=== PATIENT | female | born 1995 | race Caucasian/White ===

== ENCOUNTER 2021-11-02 05:35 | Inpatient (IN) | payer OTHER ==
[2021-11-01 13:34] LABS: Mean Corpuscular HGB CONC 33.2 g/dL (32.0-36.0); Mean Corpuscular Hemoglobin 29.7 pg (27.0-33.0); Mean Corpuscular Volume 89.5 fl (81.6-98.3); Mean Platelet Volume 10.2 fl (7.4-10.4); Platelet Count 202 10x3/uL (150-450); RBC Distribution Width 13.2 % (11.5-14.5); Red Blood Cell (RBC) Count 4.38 10x6/uL (3.90-5.03); White Blood Cell (WBC) Count 9.7 10x3/uL (3.5-10.5)
[2021-11-01 14:10] LABS: Hep B Surf Ag Non-Reactive S/CO (NonReactive)
[2021-11-01 14:11] LABS: Syphilis Antibody Nonreactive (Nonreactive); Syphilis Antibody Index 0.05 S/CO (<1.00 Non-Reactive)
[2021-11-01 14:12] LABS: HBSAg Index 0.15 S/CO (0-0.99)
[2021-11-01 20:11] LABS: SARS-CoV-2 PCR by NAA Not Detected (NotDetected)
[2021-11-02] MEDS ORDERED: Promethazine HCl 25 MG/ML VIAL IM PRN ×3 (06:33→11:17)
[2021-11-02] MEDS ORDERED: Bicitra 30 ML UDCUP PO PRN (06:33)
[2021-11-02] MEDS ORDERED: Ondansetron PF 4 MG/2 ML Vial IVP PRN ×3 (06:33→11:17)
[2021-11-02] MEDS ORDERED: hydrALAZINE 20 MG/ML VIAL SLOW IVP PRN ×2 (06:33→11:17)
[2021-11-02] MEDS ORDERED: Lactated Ringer's 1,000 ML IV SCH (06:33)
[2021-11-02] MEDS ORDERED: ceFAZolin 2 GM/Dextrose 50 ML 2 GM in Premix Bag 1 BAG IVPB SCH (06:33)
[2021-11-02] MEDS ORDERED: Famotidine/PF 20 mg/2ml Vial SLOW IVP PRN (06:33)
[2021-11-02 06:35] VITALS: BMI 25.4
[2021-11-02] MEDS ORDERED: ePHEDrine Sulfate 50 MG/10 ML VIAL ONE (07:09)
[2021-11-02] MEDS ORDERED: Morphine PF 10 MG/10 ML VIAL ONE (07:09)
[2021-11-02] MEDS ORDERED: Glycopyrrolate 0.2 MG/ML 5 ML SYRINGE ONE (07:11)
[2021-11-02] MEDS ORDERED: Ketorolac Tromethamine 30 MG/ML VIAL ONE (07:11)
[2021-11-02] MEDS ORDERED: Dexamethasone 4 mg/ml Vial ONE (07:11)
[2021-11-02] MEDS ORDERED: Phenylephrine 40 MG/NS 250 ML 250 ML ONE (07:11)
[2021-11-02] MEDS ORDERED: Oxytocin 10 UNITS/ML VIAL ONE (07:11)
[2021-11-02] MEDS ORDERED: PHENYLEPHRINE-NS 100 MCG/ML 10 ML SYRINGE ONE (07:11)
[2021-11-02] MEDS ORDERED: Ondansetron PF 4 MG/2 ML Vial ONE (07:11)
[2021-11-02] MEDS ORDERED: Ondansetron HCl/PF 4 MG/2 ML Vial IVP PRN (07:17)
[2021-11-02] MEDS ORDERED: Promethazine HCl 25 MG SUPP PR PRN (07:17)
[2021-11-02] MEDS ORDERED: Naloxone HCl 0.4 mg/ml Vial IVP PRN ×2 (07:17)
[2021-11-02] MEDS ORDERED: diphenhydrAMINE 50 MG/ML VIAL IVP PRN (07:17)
[2021-11-02] MEDS ORDERED: Meperidine HCl/PF 25 MG/ML VIAL SLOW IVP PRN (07:17)
[2021-11-02] MEDS ORDERED: Fentanyl 100 MCG/2 ML VIAL SLOW IVP PRN (07:17)
[2021-11-02] MEDS ORDERED: Hydrocerin (Eucerin) Cream 120 gm Jar TOP PRN (07:17)
[2021-11-02] MEDS ORDERED: Naloxone HCl 0.4 mg/ml Vial IV PRN (07:17)
[2021-11-02] MEDS ORDERED: Ketorolac Tromethamine 30 MG/ML VIAL IVP PRN (07:17)
[2021-11-02] MEDS ORDERED: Communication Order-Pharmacy FS SCH (07:30)
[2021-11-02] MEDS ORDERED: Ketorolac Tromethamine 30 MG/ML VIAL IVP SCH (07:30)
[2021-11-02] MEDS ORDERED: NS w/ Oxytocin 30 units 500 ML ONE (09:02)
[2021-11-02] MEDS ORDERED: Lanolin Ointment 7 GM TUBE TOP PRN (11:17)
[2021-11-02] MEDS ORDERED: Bisacodyl 10 MG SUPP PR PRN (11:17)
[2021-11-02] MEDS ORDERED: Boostrix 0.5 ML (Tdap) VIAL IM ONE (11:17)
[2021-11-02] MEDS ORDERED: Simethicone Chewable 80 MG TAB PO PRN (11:17)
[2021-11-02] MEDS ORDERED: diphenhydrAMINE 25 MG CAP PO PRN (11:17)
[2021-11-02] MEDS: Docusate 100 MG CAP PO SCH ×2 (13:46→22:00)
[2021-11-02] MEDS: Prenatal Vitamin 1 TAB PO SCH (13:46)
[2021-11-02] MEDS: Ferrous Sulfate 325 MG TAB PO SCH ×2 (13:46→22:00)
[2021-11-02] MEDS: Ibuprofen 800 MG TAB PO SCH ×2 (13:56→22:11)
[2021-11-02] MEDS ORDERED: HYDROcodone/Acetaminophen 5/325 mg Tablet PO PRN ×2 (20:00)
[2021-11-03 05:24] LABS: Hemoglobin 10.9 g/dL (12.0-15.5); Mean Corpuscular HGB CONC 33.7 g/dL (32.0-36.0); Mean Corpuscular Hemoglobin 29.6 pg (27.0-33.0); Mean Corpuscular Volume 87.8 fl (81.6-98.3); Mean Platelet Volume 10.1 fl (7.4-10.4); Platelet Count 161 10x3/uL (150-450); RBC Distribution Width 13.5 % (11.5-14.5); Red Blood Cell (RBC) Count 3.68 10x6/uL (3.90-5.03); White Blood Cell (WBC) Count 13.8 10x3/uL (3.5-10.5)
[2021-11-03] MEDS: Ibuprofen 800 MG TAB PO SCH ×3 (05:27→21:18)
[2021-11-03] MEDS: Ferrous Sulfate 325 MG TAB PO SCH ×2 (07:35→20:04)
[2021-11-03] MEDS: Docusate 100 MG CAP PO SCH ×2 (09:13→21:18)
[2021-11-03] MEDS: Prenatal Vitamin 1 TAB PO SCH (09:13)
[2021-11-03] MEDS: Acetaminophen 325 MG TAB PO PRN (17:32)
[2021-11-04] MEDS: Acetaminophen 325 MG TAB PO PRN (00:28)
[2021-11-04 05:49] VITALS: TEMP 98.1
[2021-11-04] MEDS: Ibuprofen 800 MG TAB PO SCH (05:49)
[2021-11-04 08:23] VITALS: BP 98/61
[2021-11-04] MEDS: Prenatal Vitamin 1 TAB PO SCH (11:44)
[2021-11-04] MEDS: Ferrous Sulfate 325 MG TAB PO SCH (11:44)
[2021-11-04] MEDS: Docusate 100 MG CAP PO SCH (11:44)
== END 2021-11-04 11:25 | disposition home or self-care (01) | DRG 788 ==
LOC: CSHLD 05:35 → CSHPP 10:45
PROVIDERS: ADMIT Student in an Organized Health Care Education/Training Program; ATTEND Student in an Organized Health Care Education/Training Program
PROC: 10D00Z1 Extraction of Products of Conception, Low, Open Approach (ICD-10-PCS; principal; 2021-11-02)
DX: O34.211 Maternal care for low transverse scar from previous cesarean delivery (principal); Z3A.39 39 weeks gestation of pregnancy; Z37.0 Single live birth; O99.62 Diseases of the digestive system complicating childbirth; K66.0 Peritoneal adhesions (postprocedural) (postinfection); Z20.822 Contact with and (suspected) exposure to COVID-19; Z79.899 Other long term (current) drug therapy; Z88.2 Allergy status to sulfonamides; L91.0 Hypertrophic scar; O99.72 Diseases of the skin and subcutaneous tissue complicating childbirth
CPT/HCPCS: 36415; 51702; 85027; 86780; 86850; 86900; 86901; 87340; J0690; J1100; J1885; J2274; J2405; J2590; S0028; U0003; U0005